=== PATIENT | female | born 1965 | race Caucasian/White ===

== ENCOUNTER 2017-05-07 11:35 | Emergency (ER) | payer OTHER ==
[2017-05-07 11:42] VITALS: BP 139/87; PULSE 85; TEMP 98.1; BMI 21.1
--- NOTE | 2017-05-07 12:17 | PDOC ---
History of Present Illness - General Chief Complaint: Pain Stated Complaint: RT BIG TOE PAIN Time Seen by Provider: 05/07/17 12:01 - History of Present Illness Initial Comments: 05/07/17 12:43 Complaint: Pain left great toe History of present illness: Intermittent pain at the tip of the left great toe, lateral aspect, in the area where there is pressure from her shoe. 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 The pain clears up completely and then recurs. No other acute injuries. No pain at the IP or MCP J. Physical exam: Normal except for mild tenderness of the tip of the left great toe, medial aspect, no erythema, induration, skin lesions or skin disruption. Sign of paronychia. No deformity. Impression: Repetitive inflammation due to rubbing on the foot where. Plan: Symptomatic treatment, orthotics, padding, and follow-up as necessary with orthopedist or gas cutter. Past History - Past Medical History Allergies/Adverse Reactions: Allergies Allergy/AdvReac Type Severity Reaction Status Date / Time No Known Allergies Allergy Verified 05/07/17 11:39 Home Medications: Ambulatory Orders Sumatriptan Succinate [Imitrex] 50 mg PO ASDIR PRN 08/01/16 Psychiatric Problems: Yes (ANXIETY) Suicide Attempt (Hx): No Other medical history: MIGRAINE HEADACHES - Immunization History Immunization Up to Date: Yes - Psycho/Social/Smoking Cessation Hx Anxiety: No Suicidal Ideation: No Smoking Status: No Smoking History: Never smoked Number of Cigarettes Smoked Daily: 0 Information on smoking cessation initiated: No Hx Alcohol Use: No Drug/Substance Use Hx: No Substance Use Type: None *Physical Exam - Vital Signs Last Vital Signs Temp Pulse Resp BP Pulse Ox 98.1 F 85 18 139/87 100 05/07/17 11:35 05/07/17 11:35 05/07/17 11:35 05/07/17 11:35 05/07/17 11:35 *DC/Admit/Observation/Transfer Diagnosis at time of Disposition: Injury of great toe Qualifiers: Encounter type: initial encounter Laterality: left Qualified Code(s): S99.922A - Unspecified injury of left foot, initial encounter - Discharge Dispostion Disposition: HOME Condition at time of disposition: Stable Admit: No - Referrals Referrals: Robby Manley MD [Staff Physician] - - Patient Instructions Additional Instructions: Use orthotics, proper footwear, and padding as discussed. See orthopedist if no improvement. Ice and Advil drink labs. Supplement with warm soaks/Epsom salts.
== END 2017-05-07 12:25 | disposition home or self-care (01) ==
LOC: FER 11:35
DX: S99.922A Unspecified injury of left foot, initial encounter (principal); X58.XXXA Exposure to other specified factors, initial encounter; Y93.89 Activity, other specified; Y92.9 Unspecified place or not applicable; F41.9 Anxiety disorder, unspecified
CPT/HCPCS: 99282-25

== ENCOUNTER 2017-12-05 09:45 | Emergency (ER) | payer OTHER ==
[2017-12-05 09:53] VITALS: BP 148/98; TEMP 98.1; BMI 21.7
[2017-12-05] MEDS ORDERED: ONDANSETRON *ODT* 4 MG TABLET SL ONE (09:53)
[2017-12-05] MEDS ORDERED: ONDANSETRON *ODT* 4 MG TABLET ONE (09:57)
--- NOTE | 2017-12-05 09:57 | PDOC ---
Attending Attestation - Resident Resident Name: Marco ADemariokendrick - ED Attending Attestation I have performed the following: I have examined & evaluated the patient, The case was reviewed & discussed with the resident, I agree w/resident's findings & plan, Exceptions are as noted - HPI HPI: 12/05/17 09:56 52y F hx of GERD, presenting with 3 days of fevers, R sided ear pain, nonproductive cough, and myalgias. No associated hemoptysis, chest pain, sob, pickering, leg swelling. NO known sick contacts. 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 lives with her parents. exam unreamrakble no acute distress card exam: rrr, no m/r/g pulm: cta posterior pharynx:mildly erythemadous w/o exudates abd: soft nontender, no rebound/guarding suspect flu will treat with tamiflu due to her living with her 80yr old parents return precautions were discussed pmd fu - Physicial Exam PE: 12/05/17 10:13 see above - Medical Decision Making 12/05/17 10:13 see above
--- NOTE | 2017-12-05 10:09 | PDOC ---
History of Present Illness - General Chief Complaint: Respiratory Stated Complaint: COUGH, SORE THROAT, RT EARACHE, STUFFY NOSE Time Seen by Provider: 12/05/17 09:50 - History of Present Illness Initial Comments: 52 year old female presenting with 12/05/17 10:01 Past History - Past Medical History Allergies/Adverse Reactions: Allergies Allergy/AdvReac Type Severity Reaction Status Date / Time No Known Allergies Allergy Verified 12/05/17 09:47 Home Medications: Ambulatory Orders Ibuprofen [Advil -] 200 mg PO ASDIR PRN 12/05/17 Ondansetron [Zofran Odt -] 4 mg GT BID PRN 5 Days #10 tab.rapdis 12/05/17 Oseltamivir Phosphate 75 mg PO BID 5 Days #10 capsule 12/05/17 Ranitidine HCl [Zantac] 150 mg PO ASDIR 12/05/17 COPD: No Psychiatric Problems: Yes (ANXIETY) - Immunization History Immunization Up to Date: Yes - Suicide/Smoking/Psychosocial Hx Smoking Status: No Smoking History: Never smoked Have you smoked in the past 12 months: No Number of Cigarettes Smoked Daily: 0 Information on smoking cessation initiated: No Hx Alcohol Use: No Drug/Substance Use Hx: No Substance Use Type: None *Physical Exam - Vital Signs Last Vital Signs Temp Pulse Resp BP Pulse Ox 98.1 F 102 H 20 148/98 100 12/05/17 09:45 12/05/17 09:45 12/05/17 09:45 12/05/17 09:45 12/05/17 09:45 *DC/Admit/Observation/Transfer Diagnosis at time of Disposition: Influenza - Discharge Dispostion Disposition: HOME Condition at time of disposition: Improved Admit: No - Referrals Referrals: [facility] [Provider Group] - Patient Instructions Printed Discharge Instructions: DI for Influenza -- Adult Additional Instructions: You likely have the flu or another viral syndrome. Please take the oseltamivir ( tamiflu) 2 times per day for 5 days. Please use Tylenol or ibuprofen for the fever and pain. Please return to the ED if your fever, muscle pains, or other symptoms get worse in the next few days or if they aren't better. You can use the Zofran up to twice a day for your nausea and or vomiting. Please follow up with your primary care physician if you have any other questions or you can use our walk in clinic on this sheet if you do not have a PCP. - Post Discharge Activity
[2017-12-05 10:28] VITALS: PULSE 99
== END 2017-12-05 10:30 | disposition home or self-care (01) ==
LOC: FER 09:45
DX: J11.1 Influenza due to unidentified influenza virus with other respiratory manifestations (principal); F41.9 Anxiety disorder, unspecified
CPT/HCPCS: 87804; 99283-25

== ENCOUNTER 2017-12-09 09:43 | Emergency (ER) | payer OTHER ==
[2017-12-09 09:50] VITALS: BP 146/93; PULSE 87; TEMP 98.4; BMI 21.7
--- NOTE | 2017-12-09 10:11 | PDOC ---
History of Present Illness - General Chief Complaint: Ear Problem Stated Complaint: rt ear pain Time Seen by Provider: 12/09/17 09:49 - History of Present Illness Initial Comments: 12/09/17 10:35 Chief complaint: Earache History of present illness: Treated for influenza, finished Tamiflu, although flu swab was negative. 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 Conjunctivae, throat is clear. Neck supple without bruit mass or nodes Chest clear CV regular without murmur rub or gallop Abdomen benign Skin clear, no rash, adequate turgor and wet mucous membranes Impression: Residual URI symptoms, eustachian tube dysfunction Plan: Antihistamine/decongestant, rest and fluids, follow-up as necessary. Fully ambulatory and in no distress at discharge with mother to follow-up as directed Past History - Past Medical History Allergies/Adverse Reactions: Allergies Allergy/AdvReac Type Severity Reaction Status Date / Time No Known Allergies Allergy Verified 12/09/17 09:43 Home Medications: Ambulatory Orders Fexofenadine/Pseudoephedrine [Aleah-D 12 Hour Tablet] 1 tab PO Q12H PRN #20 tab.er.12h 12/09/17 COPD: No Psychiatric Problems: Yes (ANXIETY) - Immunization History Immunization Up to Date: Yes - Suicide/Smoking/Psychosocial Hx Smoking Status: No Smoking History: Never smoked Have you smoked in the past 12 months: No Number of Cigarettes Smoked Daily: 0 Information on smoking cessation initiated: No Hx Alcohol Use: No Drug/Substance Use Hx: No Substance Use Type: None *Physical Exam - Vital Signs Last Vital Signs Temp Pulse Resp BP Pulse Ox 98.4 F 87 18 146/93 99 12/09/17 09:43 12/09/17 09:43 12/09/17 09:43 12/09/17 09:43 12/09/17 09:43 *DC/Admit/Observation/Transfer Diagnosis at time of Disposition: Viral upper respiratory infection - Discharge Dispostion Disposition: HOME Condition at time of disposition: Stable Admit: No - Prescriptions Prescriptions: Fexofenadine/Pseudoephedrine [Aleah-D 12 Hour Tablet] 1 tab PO Q12H PRN #20 tab.er.12h PRN Reason: congestion - Referrals - Patient Instructions Printed Discharge Instructions: DI for Viral Upper Respiratory Infection -- Adult Additional Instructions: Take Advil or Aleve for muscle/joint aches and body aches. - Post Discharge Activity
== END 2017-12-09 10:49 | disposition home or self-care (01) ==
LOC: FER 09:43
DX: J06.9 Acute upper respiratory infection, unspecified (principal); F41.9 Anxiety disorder, unspecified
CPT/HCPCS: 99281-25

== ENCOUNTER 2017-12-14 10:42 | Emergency (ER) | payer OTHER ==
--- NOTE | 2017-12-14 11:08 | PDOC ---
History of Present Illness - General Chief Complaint: Pain Stated Complaint: rt hand pain Time Seen by Provider: 12/14/17 10:43 - History of Present Illness Initial Comments: 12/14/17 11:03 Chief complaint: Right hand pain History of present illness: This is a 52-year-old woman with no significant past medical history who presents to the emergency department with several day history of intermittent right hand discomfort. Patient states she was diagnosed with the flu last week over the course of this week she has realized that when she wakes up from sleep her hands are flexed inward and over the course of the day with repetitive typing and turning of her right hand she experiences pain over the dorsal aspect of her hand in the middle. No history of direct trauma. No current fever chills weakness no rashes mumps bruises. Symptoms are intermittent exacerbated by repetitive movement mild in severity alleviated by rest no associated fever or chills redness rashes Past History - Past Medical History Allergies/Adverse Reactions: Allergies Allergy/AdvReac Type Severity Reaction Status Date / Time No Known Allergies Allergy Verified 12/14/17 10:43 Home Medications: Ambulatory Orders NK [No Known Home Medication] 12/14/17 COPD: No Psychiatric Problems: Yes (ANXIETY) - Immunization History Immunization Up to Date: Yes - Suicide/Smoking/Psychosocial Hx Smoking Status: No Smoking History: Never smoked Have you smoked in the past 12 months: No Number of Cigarettes Smoked Daily: 0 Hx Alcohol Use: No Drug/Substance Use Hx: No Substance Use Type: None Review of Systems - Review of Systems Comments:: 12/14/17 11:05 ROS: A complete review of 10 out of 10 review of systems is taken and is negative apart from what is previously mentioned below and in the HPI. *Physical Exam - Physical Exam Comments: 12/14/17 11:05 Vitals: Triage Vital signs reviewed General Appearance: no acute distress, well nourished well developed, Head: Atraumatic, Extremities: Full range of motion to all extremities, no cyanosis, clubbing, or edema no tenderness to palpation neurovascularly intact distally good strength good sensation and good radial pulses Skin: Warm and dry, no rashes or lesions, no rash, no petechiae Neuro: AOX3; Cranial Nerves 2-12 grossly intact, Strength intact to all extremities, Sensation intact to all extremities,gait normal Psych: normal mood, normal affect Medical Decision Making - Medical Decision Making 12/14/17 11:06 Well-appearing no apparent distress history and examination most consistent with tendinitis no bony discomfort to palpation We'll recommend conservative management for the next few days rest ice NSAIDs wrist splint at night. If no improvement by Monday patient will follow-up with Dr. Doroteo gonzalez Findings, the need for follow-up, strict return instructions discussed with patient. *DC/Admit/Observation/Transfer Diagnosis at time of Disposition: Hand tendonitis - Discharge Dispostion Disposition: HOME Admit: No - Referrals Referrals: Jayce Sadler MD [Staff Physician] - - Patient Instructions Printed Discharge Instructions: DI for Hand Pain Additional Instructions: Take immm-sle-zryaicm Aleve 2 tabs twice a day morning and night for the next 3 days. Ice affected hand 20 minutes on 20 minutes off. Wear a wrist splint which can be purchased at a pharmacy while he sleep at night. If no improvement in symptoms by Monday follow-up with Dr. Sadler hand. Return to the emergency department for severe worsening symptoms or for any concerns. - Post Discharge Activity
[2017-12-14 11:11] VITALS: BP 129/69; PULSE 84; TEMP 97.9; BMI 21.7
== END 2017-12-14 11:19 | disposition home or self-care (01) ==
LOC: FER 10:42
PROC: 2W3CX1Z Immobilization of Right Lower Arm using Splint (ICD-10-PCS; principal; 2017-12-14)
DX: M77.9 Enthesopathy, unspecified (principal); F41.9 Anxiety disorder, unspecified
CPT/HCPCS: 99281-25

== ENCOUNTER 2018-09-19 09:54 | Emergency (ER) | payer OTHER ==
--- NOTE | 2018-09-19 10:00 | PDOC ---
History of Present Illness - General Chief Complaint: Pain Stated Complaint: left flank/mid back pain Time Seen by Provider: 09/19/18 09:59 History Source: Patient Exam Limitations: No Limitations Past History - Past Medical History Allergies/Adverse Reactions: Allergies Allergy/AdvReac Type Severity Reaction Status Date / Time No Known Allergies Allergy Verified 09/19/18 09:55 Home Medications: Ambulatory Orders Cyclobenzaprine HCl [Flexeril -] 10 mg PO HS PRN #14 tablet 09/19/18 Diclofenac Sodium [Diclofenac Sodium ER] 100 mg PO DAILY PRN #30 tab.er.24h Famotidine [Pepcid] 20 mg PO DAILY PRN #30 tablet 09/19/18 COPD: No Psychiatric Problems: Yes (ANXIETY) - Immunization History Immunization Up to Date: Yes - Suicide/Smoking/Psychosocial Hx Smoking Status: No Smoking History: Never smoked Have you smoked in the past 12 months: No Number of Cigarettes Smoked Daily: 0 Hx Alcohol Use: No Drug/Substance Use Hx: No Substance Use Type: None Medical Decision Making - Medical Decision Making Pt was seen at bedside, also will be seen by attending Dr. Rodriguez. Pt presenting with L-sided flank pain x1 week. Pt states about 1 week ago, she was shoveling snow during the snow storm. PE showed [] Considering [vs vs] Ordered work-up including UA and urine culture. Provided 60 mg IM toradol and 500 mg robaxin for improvement of likely muscle spasm and pain control. Will continue to reassess pt and monitor for symptomatic improvement. 09/19/18 10:20 09/19/18 18:56 Sent 10 Flexeril, 60 diclofenac, and 20 mg pepcid to pt pharmacy. UA showed trace blood (pt has had in the past), no infection. Considering normal lab results, pt can be discharged to home with follow-up. Pt advised to follow-up with PCP in 1-2 days. Strict return precautions provided with pt understanding. 09/19/18 18:59 *DC/Admit/Observation/Transfer Diagnosis at time of Disposition: Flank pain Back strain Qualifiers: Encounter type: initial encounter Qualified Code(s): S39.012A - Strain of muscle, fascia and tendon of lower back, initial encounter - Discharge Dispostion Disposition: HOME Condition at time of disposition: Good Decision to Admit order: No - Prescriptions Prescriptions: Cyclobenzaprine HCl [Flexeril -] 10 mg PO HS PRN #14 tablet PRN Reason: Back Pain Diclofenac Sodium [Diclofenac Sodium ER] 100 mg PO DAILY PRN #30 tab.er.24h PRN Reason: Back Pain Famotidine [Pepcid] 20 mg PO DAILY PRN #30 tablet PRN Reason: Indigestion - Referrals - Patient Instructions Printed Discharge Instructions: DI for Low Back Pain Additional Instructions: You were seen in the ER today for flank pain. The results of your labs today showed no urinary tract infection. Please follow-up with your primary care doctor within 1-2 days to discuss your visit and make sure your symptoms have improved. I have sent 20 mg Pepcid (once per day, as needed for indigestion), 10 mg Flexeril (once per day at night, for back spasm), and 100 mg extended release diclofenac (once per day, as needed), to your pharmacy. Please take the Flexeril at night, as it can cause drowsiness, and do not operate heavy machinery while taking it. Please return to the ER if you have any worsening pain, development of fevers or chills, loss of consciousness, inability to tolerate food or fluids, or any other concerns. - Post Discharge Activity
[2018-09-19 10:13] VITALS: BP 141/93; PULSE 82; TEMP 97.7; BMI 21.3
[2018-09-19] MEDS ORDERED: KETOROLAC TROMETHAMINE 60 MG/2 ML VIAL IM ONE (10:19)
[2018-09-19] MEDS ORDERED: METHOCARBAMOL 500 MG TABLET PO ONE (10:19)
--- NOTE | 2018-09-19 10:21 | PDOC ---
Attending Attestation - Resident Resident Name: DaxAyana - ED Attending Attestation I have performed the following: I have examined & evaluated the patient, The case was reviewed & discussed with the resident, I agree w/resident's findings & plan, Exceptions are as noted - HPI HPI: 09/19/18 10:44 Left back pain after snow shoveling several days ago. Worse with movement. No radicular symptoms. No rash - Physicial Exam PE: 09/19/18 10:45 Physical exam is normal. Patient sitting comfortably in no acute distress. No CVAT. No abdominal tenderness. No tenderness or deformity of the lumbosacral spine. Neurologically intact. Gait stable and unimpaired. - Medical Decision Making 09/19/18 10:46 Assessment: Musculoskeletal pain Plan: Urinalysis and symptomatic treatment. Further evaluation depending on results. 09/19/18 11:17 Urinalysis clear, except for trace blood, which the patient has always had in the past Symptoms are most consistent with musculoskeletal pain. Symptomatic treatment and follow-up as necessary. Fully ambulatory in no significant pain or other distress upon discharge.
[2018-09-19] MEDS ORDERED: METHOCARBAMOL 500 MG TABLET ONE (10:29)
[2018-09-19] MEDS ORDERED: KETOROLAC TROMETHAMINE 60 MG/2 ML VIAL ONE (10:29)
[2018-09-19 10:33] LABS: PH,URINE 5.5 (4.5-8); URINE APPEARANCE Clear; URINE BILIRUBIN Negative (NEGATIVE); URINE COLOR Amber; URINE GLUCOSE (UA) Negative (NEGATIVE); URINE KETONE Trace (NEGATIVE); URINE LEUK ESTERASE Negative (NEGATIVE); URINE NITRITE Negative (NEGATIVE); URINE PROTEIN 1+ (NEGATIVE); URINE UROBILINOGEN 0.2 (0.2-1.0)
[2018-09-19 10:53] LABS: EPI CELLS 2+ /HPF; URINE RBC 0-2 /hpf (0-3); URINE WBC 0-2 (0-5)
== END 2018-09-19 11:22 | disposition home or self-care (01) ==
LOC: FER 09:54
DX: R10.31 Right lower quadrant pain (principal); S39.012A Strain of muscle, fascia and tendon of lower back, initial encounter; X58.XXXA Exposure to other specified factors, initial encounter; Y93.89 Activity, other specified; Y92.9 Unspecified place or not applicable; F41.9 Anxiety disorder, unspecified
CPT/HCPCS: 81003; 81015; 87086; 99282-25

== ENCOUNTER 2018-09-25 11:59 | Emergency (ER) | payer OTHER ==
[2018-09-25 12:06] VITALS: BP 144/87; PULSE 93; TEMP 98.2; BMI 21.3
--- NOTE | 2018-09-25 12:27 | PDOC ---
History of Present Illness - General Chief Complaint: Pain, Acute Stated Complaint: LEFT SIDED BACK PAIN Time Seen by Provider: 09/25/18 12:07 History Source: Patient Exam Limitations: No Limitations - History of Present Illness Initial Comments: 09/25/18 12:33 53y F hx of migraines, hx of herniated disc (confirmed by MRI a few years ago) for the past week or so. Pt noted increasing L sided lower back pain since shoveling from the last snow storm. pain is 8/10. The patient notes the pain is in the L flank and radiates to the front. The pain is constant but occasionally worsens. IT does seem to get better when she uses a heating pad at night, but will come back after a few hrs. Pt came to [facility] about a week ago and then went to urgent care and has been give some meds which she has been taking intermittently. Pt denies any fever/chills, n/v, f/c, dysuria, hematuria, diarrhea, cp, sob, palpitations, numbness/tingling/weakness. Pain does not seem to wrosen with movement or certain postiions. Past History - Past Medical History Allergies/Adverse Reactions: Allergies Allergy/AdvReac Type Severity Reaction Status Date / Time No Known Allergies Allergy Verified 09/25/18 12:00 Home Medications: Ambulatory Orders Nabumetone 750 mg PO BID PRN 09/25/18 Sumatriptan Succinate [Imitrex] 25 mg PO ASDIR PRN 09/25/18 Tizanidine HCl 4 mg PO TID PRN 09/25/18 COPD: No Psychiatric Problems: Yes (ANXIETY) Other medical history: MIGRAIN HEADACHES - Immunization History Immunization Up to Date: Yes - Suicide/Smoking/Psychosocial Hx Smoking Status: No Smoking History: Never smoked Have you smoked in the past 12 months: No Number of Cigarettes Smoked Daily: 0 Information on smoking cessation initiated: No Hx Alcohol Use: No Drug/Substance Use Hx: No Substance Use Type: None Review of Systems - Review of Systems Able to Perform ROS?: Yes Comments:: 09/25/18 13:11 Constitutional - no reported Fever, Chills, HEENT: no reported vision changes, sore throat Respiratory: no reported cough, sob, hemoptysis Cardiac: no reported chest pain, palpitations, light headedness, leg swelling Abd/GI: no reported abd pain, nausea, vomiting, blood per rectum, melena, diarrhea : no reported dysuria, frequency, discharge Musculskelatal - +back pain no reported joint swelling skin - no reported bruising, erythema, rash neurological: no reported headache, numbness, focal weakness, tingling, ataxia, hematologic: no reported easy bruising, easy bleeding *Physical Exam - Vital Signs Last Vital Signs Temp Pulse Resp BP Pulse Ox 98.2 F 93 H 18 144/87 98 09/25/18 12:00 09/25/18 12:00 09/25/18 12:00 09/25/18 12:00 09/25/18 12:00 - Physical Exam Comments: 09/25/18 13:11 GENERAL: The patient is awake, alert, and fully oriented, Nontoxic - in no acute distress. HEAD: Normocephalic, atraumatic. EYES: extraocular movements intact, sclera anicteric, conjunctiva clear. ENT: Normal voice, Moist mucous membranes. NECK: Normal range of motion, supple LUNGS: Breath sounds equal, clear to auscultation bilaterally. No wheezes, no rhonchi, no rales. HEART: Regular rate and rhythm, normal S1 and S2 without murmur, rub or gallop. ABDOMEN: Soft, nontender, normoactive bowel sounds. No guarding, no rebound. . No CVA tenderness EXTREMITIES: Normal range of motion, no edema. No clubbing or cyanosis. No cords, erythema, or tenderness. BACK: no midline or paraspinal tenderness, no flcutuance, erythema, no rashes NEUROLOGICAL: No facial assymetry, Normal speech, PSYCH: Normal mood, normal affect. SKIN: Warm, Dry, normal turgor, Moderate Sedation - Procedure Monitoring Vital Signs: Procedure Monitoring Vital Signs Temperature 98.2 F 09/25/18 12:00 Pulse Rate 93 H 09/25/18 12:00 Respiratory Rate 18 09/25/18 12:00 Blood Pressure 144/87 09/25/18 12:00 O2 Sat by Pulse Oximetry (%) 98 09/25/18 12:00 Medical Decision Making - Medical Decision Making 09/25/18 13:11 ddx for the pts pain includes msk vs kdiney stones pt had prior lab work at urgent care, had a UA here that was trace blood (which she states is chronic for her) pt declines pain meds here will obtain repeat obtain a CT sprial 09/25/18 14:09 CT neg for hydro and stones will dc with pmd fu an dsupportive care for msk strain rturn precautions were dsicussed I discussed the physical exam findings, ancillary test results and final diagnoses with the patient. I answered all of the patient's questions. The patient was satisfied with the care received and felt comfortable with the discharge plan and treatment plan. The patient will call their primary care physician within 24 hours to arrange follow-up and will return to the Emergency Department with any new, persistent or worsening symptoms. *DC/Admit/Observation/Transfer Diagnosis at time of Disposition: Muscle strain - Discharge Dispostion Disposition: HOME Condition at time of disposition: Stable Decision to Admit order: No - Referrals Referrals: Marcy Kincaid MD [Primary Care Provider] - - Patient Instructions Printed Discharge Instructions: DI for Back Strain or Sprain Additional Instructions: Return to the emergency department immediately with ANY new, persistent or worsening symptoms including numbness, tingling, weakness, fevers or any other concerns. Take ibuprofen (400mg)/tylenol(650mg) every 6 hours for 2 days. Apply heat to your sore muscles. You MUST call and follow up with your doctor in 4-5 days for further evaluation of your symptoms. Your emergency department visit is not complete without a followup with your doctor for reevaluation.. Results were discussed with you. Please make sure your doctor reviews the results of your emergency evaluation. Print Language: TURKMEN - Post Discharge Activity
== END 2018-09-25 14:15 | disposition home or self-care (01) ==
LOC: FER 11:59
DX: S39.012A Strain of muscle, fascia and tendon of lower back, initial encounter (principal); X58.XXXA Exposure to other specified factors, initial encounter; Y93.89 Activity, other specified; Y92.9 Unspecified place or not applicable
CPT/HCPCS: 74176; 99283-25

== ENCOUNTER 2019-03-16 09:45 | Emergency (ER) | payer OTHER ==
--- NOTE | 2019-03-16 10:10 | PDOC ---
Attending Attestation - Resident Resident Name: McnealJewel - ED Attending Attestation I have performed the following: I have examined & evaluated the patient, The case was reviewed & discussed with the resident, I agree w/resident's findings & plan, Exceptions are as noted - HPI HPI: 53 yo F presents with R low back pain that radiates to R upper inner thigh. She has had similar yang in the past, generally made worse with bending, twisting, and lifting. She has an arthritic dog which she frequently has to carry. 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 No direct trauma. - Physicial Exam PE: GENERAL: Awake, alert, and fully oriented, in no acute distress HEAD: No signs of trauma EYES: PERRLA, EOMI, sclera anicteric, conjunctiva clear ENT: Auricles normal inspection, hearing grossly normal, nares patent, oropharynx clear without exudates. Moist mucosa NECK: Normal ROM, supple, no lymphadenopathy, JVD, or masses LUNGS: Breath sounds equal, clear to auscultation bilaterally. No wheezes, and no crackles HEART: Regular rate and rhythm, normal S1 and S2, no murmurs, rubs or gallops ABDOMEN: Soft, nontender, normoactive bowel sounds. No guarding, no rebound. No masses MSK: R low back with soft tissue tenderness to R lumbar paraspinal region. No midline tenderness, no stepoffs. Extremities with normal range of motion, no edema. No clubbing or cyanosis. No cords, erythema, or tenderness NEUROLOGICAL: Cranial nerves II through XII grossly intact. Normal speech, normal gait. Motor and sensation intact SKIN: Warm, Dry, normal turgor, no rashes or lesions noted. - Medical Decision Making Suspect MSK pain. No red flag symptoms. Stable for DC home.
[2019-03-16 10:13] VITALS: BP 140/80; PULSE 86; TEMP 98.4; BMI 21.1
[2019-03-16] MEDS ORDERED: LIDOCAINE 5% TOPICAL PATCH TP ONE (10:17)
[2019-03-16] MEDS ORDERED: LIDOCAINE 5% TOPICAL PATCH ONE (10:18)
--- NOTE | 2019-03-16 10:32 | PDOC ---
History of Present Illness - General Chief Complaint: Back Pain Stated Complaint: RIGHT LOWER BACK PAIN Time Seen by Provider: 03/16/19 09:55 History Source: Patient, Old Records Exam Limitations: No Limitations - History of Present Illness Initial Comments: HPI: 53 y/o female presenting to ER complaining of right lower back pain with a burning sensation over the right thigh. States pain has been a chronic problem over the past several months and became worse over the past several days. Made worse by bending and twisting at waist. 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 Was referred to physical therapy and pain management clinic by PCP but pt has declined to f/ u. PCP: Dr. 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 Medical Hx: - Migraines - Chronic lower back pain Review of Systems: In addition to that documented in the HPI above, the additional ROS was obtained : Constitutional: Denies fevers or chills Head: Denies vision changes ENMT: Denies sore throat CV: Denies chest pain Resp: Denies SOB GI: Denies vomiting or diarrhea : Denies painful urination MSK: Per HPI Skin: Denies new rashes Neuro: Denies new numbness or tingling or weakness, saddle anesthesia, difficulty voiding, or bowel incontinence Endocrine: Denies polyuria Heme: Denies bleeding or bruising Physical Examination: Constitutional: Well-developed, well-nourished female in no acute distress or obvious discomfort. Found standing upright next to hospital bed. Alert and oriented x4. Answered all questions appropriately and completely. Speech was non -labored, non-pressured. Head: Normocephalic. No obvious external signs of trauma. Cardiovascular / Chest: Regular rate and regular rhythm. No murmur, rubs, clicks , or gallops. Peripheral pulses: radial pulses full. Respiratory: Breathing unlabored. Equal chest rise and fall. Clear to auscultation bilaterally. No stridor, no wheezing, no rhonchi. Gastrointestinal: abdomen is soft, non-tender, non-distended. No overlying skin lesions or obvious signs of trauma. Neuro: Alert and oriented. Moving all four extremities spontaneously. Sensation to all four extremities intact. Lower extremity: proximal and distal strength 5/ 5. Plantar flexion and dorsiflexion 5/5. Negative straight leg test on R. Skin: Warm, dry, and intact. Psych: Affect: anxious. Mood: normal. MDM: *Reviewed vital signs, nursing notes, and prior visit documentation (if available). 53 y/o female presenting with R lower back pain made worse when bending at waist. Long history of similar pain. Has been seen as this department several times a year for similar complaints. No red flags identified. Afebrile. Vitals unremarkable for hypotension or tachycardia. Physical exam as described above. Suspect likely MSK pain with lateral femoral cutaneous radiculopathy. Low suspicion for Cauda Equina or abscess. Ordered lidoderm patch for pain relief. Pt declined Tylenol stating she had taking Advil a few hours earlier and her stomach was sensitive to medication. Sent prescription for Lidoderm patch to pharmacy. Discussed physical exam findings with pt. Answered all questions. Provided return precautions. Pt expressed verbal understanding and agreement with plan to discharge home with outpatient follow up. Jewel Mcneal M.D., PGY1 Emergency Medicine Resident Past History - Past Medical History Allergies/Adverse Reactions: Allergies Allergy/AdvReac Type Severity Reaction Status Date / Time No Known Allergies Allergy Verified 03/16/19 09:52 Home Medications: Ambulatory Orders Ibuprofen [Advil -] 400 mg PO TID PRN 03/16/19 Lidocaine 5% Patch [Lidoderm Patch -] 1 patch TP DAILY #30 patch 03/16/19 COPD: No Psychiatric Problems: Yes (ANXIETY) - Immunization History Immunization Up to Date: Yes - Suicide/Smoking/Psychosocial Hx Smoking Status: No Smoking History: Never smoked Have you smoked in the past 12 months: No Number of Cigarettes Smoked Daily: 0 Hx Alcohol Use: No Drug/Substance Use Hx: No Substance Use Type: None *Physical Exam - Vital Signs Last Vital Signs Temp Pulse Resp BP Pulse Ox 98.4 F 86 16 140/80 100 03/16/19 09:46 03/16/19 09:46 03/16/19 09:46 03/16/19 09:46 03/16/19 09:46 ED Treatment Course - Medications Given in the ED: ED Medications Discontinued Medications Generic Name Dose Route Start Last Admin Trade Name Freq PRN Reason Stop Dose Admin Lidocaine 1 patch 03/16/19 10:17 03/16/19 10:22 Lidoderm Patch - TP 03/16/19 10:18 1 patch ONCE ONE Administration *DC/Admit/Observation/Transfer Diagnosis at time of Disposition: Low back pain radiating to right leg - Discharge Dispostion Disposition: HOME Condition at time of disposition: Good Decision to Admit order: No - Prescriptions Prescriptions: Lidocaine 5% Patch [Lidoderm Patch -] 1 patch TP DAILY #30 patch - Referrals Referrals: Marcy Kincaid MD [Primary Care Provider] - - Patient Instructions Printed Discharge Instructions: DI for Low Back Pain Additional Instructions: You were seen today for right lower back pain, which has been bothering you for the past several months. It is likely a muscle strain and is being made worse by bending over and picking up your dog. Try and refrain from being over at the waist. Rest your back. You can take over the counter Tylenol or Advil as needed for pain. Take as directed on the package insert. Do not exceed the recommended dosage. I have a prescription for lidoderm patches to your pharmacy. Take as directed on the package insert. There is a chance the medication will not be covered by your insurance. If it is not covered, talk to the pharmacist above over the counter alternatives. Follow up with your primary care doctor within the next 3-4 days. You will need to call to make an appointment. The number is included in this packet. Print Language: CHADIAN - Post Discharge Activity
[2019-03-16] MEDS ORDERED: LIDOCAINE PATCH REMOVAL MC SCH (22:00)
== END 2019-03-16 10:34 | disposition home or self-care (01) ==
LOC: FER 09:45
DX: M54.5 Low back pain (principal); M79.604 Pain in right leg; F41.9 Anxiety disorder, unspecified
CPT/HCPCS: 99282-25

== ENCOUNTER 2019-10-17 12:59 | Emergency (ER) | payer OTHER ==
--- NOTE | 2019-10-17 13:19 | PDOC ---
History of Present Illness - General Chief Complaint: Pain Stated Complaint: rt upper chest pain History Source: Patient - History of Present Illness Initial Comments: 10/17/19 14:37 Ms. Medina is a 54 y/o woman with hx low back pain p/w one week of intermittent chest pain. She reports that her pain began approx one week ago, and worsens with movement of her neck. She reports that the pain begins at the R upper chest wall and moves up from her shoulder to her R arm. She denies any dyspnea on exertion, any shortness of breath, any fevers, chills, or weakness. 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 Past History - Past Medical History Allergies/Adverse Reactions: Allergies Allergy/AdvReac Type Severity Reaction Status Date / Time No Known Allergies Allergy Verified 03/16/19 09:52 Home Medications: Ambulatory Orders Ibuprofen [Advil -] 400 mg PO TID PRN 03/16/19 COPD: No Psychiatric Problems: Yes (ANXIETY) - Immunization History Immunization Up to Date: Yes - Psycho Social/Smoking Cessation Hx Smoking Status: No Smoking History: Never smoked Have you smoked in the past 12 months: No Number of Cigarettes Smoked Daily: 0 Hx Alcohol Use: No Drug/Substance Use Hx: No Substance Use Type: None Review of Systems - Review of Systems Able to Perform ROS?: Yes Comments:: 10/17/19 14:17 ROS: GENERAL/CONSTITUTIONAL: No fever or chills. No weakness. HEAD, EYES, EARS, NOSE AND THROAT: No change in vision. No ear pain or discharge. No sore throat. CARDIOVASCULAR: Chest pain. No shortness of breath RESPIRATORY: No cough, wheezing, or hemoptysis. GASTROINTESTINAL: No nausea, vomiting, diarrhea or constipation. GENITOURINARY: No dysuria, frequency, or change in urination. MUSCULOSKELETAL: No joint or muscle swelling or pain. No neck or back pain. SKIN: No rash NEUROLOGIC: No headache, vertigo, loss of consciousness, or change in strength/ sensation. ENDOCRINE: No increased thirst. No abnormal weight change HEMATOLOGIC/LYMPHATIC: No anemia, easy bleeding, or history of blood clots. ALLERGIC/IMMUNOLOGIC: No hives or skin allergy. *Physical Exam - Physical Exam 10/17/19 14:18 PE: GENERAL: Awake, alert, and fully oriented, in no acute distress HEAD: No signs of trauma, normocephalic, atraumatic EYES: PERRLA, EOMI, sclera anicteric, conjunctiva clear ENT: Auricles normal inspection, hearing grossly normal, nares patent, oropharynx clear without exudates. Moist mucosa NECK: Normal ROM, supple, no lymphadenopathy, JVD, or masses LUNGS: No distress, speaks full sentences, clear to auscultation bilaterally HEART: Regular rate and rhythm, normal S1 and S2, no murmurs, rubs or gallops, peripheral pulses normal and equal bilaterally. ABDOMEN: Soft, nontender, normoactive bowel sounds. No guarding, no rebound. No masses EXTREMITIES : Normal inspection, Normal range of motion, no edema. No clubbing or cyanosis NEUROLOGICAL: Cranial nerves II through XII grossly intact. Normal speech, normal gait, no focal sensorimotor deficits SKIN: Warm, Dry, normal turgor, no rashes or lesions noted Medical Decision Making - Medical Decision Making 10/17/19 14:15 54F w/no PMH p/w one week of intermittent chest pain that began after exercise, worse with specific neck movement, most consistent with MSK pain but cannot rule out ACS. Plan: CBC CMP Troponin EKG CXR Dispo: Pending --- Ms. Medina is refusing blood work as she has to leave soon. Discussed risk of missing evidence of cardiac damage/heart attack. She understands risk and will defer blood tests. Plan for EKG. --- On review, no evidence of acute ischemia on EKG. Plan for discharge with return precautions, close PCP follow up. Discharge - Discharge Information Problems reviewed: Yes Clinical Impression/Diagnosis: Chest pain Qualifiers: Chest pain type: unspecified Qualified Code(s): R07.9 - Chest pain, unspecified Condition: Stable Disposition: HOME - Admission No - Follow up/Referral - Patient Discharge Instructions Patient Printed Discharge Instructions: DI for Chest Pain Additional Instructions: You were seen in the ER for chest pain. Your EKG was normal. Please return to the ER if you develop any shortness of breath, the pain changes, you feel weak, or would like further bloodwork to evaluate the pain. Please see your primary care provider as soon as possible, in the next 3 days. - Post Discharge Activity
[2019-10-17 13:20] VITALS: BP 125/70; PULSE 76; TEMP 98.4; BMI 21.5
--- NOTE | 2019-10-17 14:17 | PDOC ---
Attending Attestation - Resident Resident Name: Errol Polo - HPI HPI: 10/17/19 14:08 Pt presents to the ED complaining of a one week history of R sided chest pain that radiates down her R arm and into her neck. Pain is worse with movements of her neck and arm. It is non exertional and non accompanied with shortness of breath. - Physicial Exam PE: 10/17/19 14:17 Agree with resident exam. Patient is alert and oriented and no acute distress. + point tenderness over R chest wall. Ambulatory with normal gait. 10/17/19 14:17 - Medical Decision Making 10/17/19 14:18 Pt presents to the ED complaining of a one week history of R sided chest wall pain. No risk factors for cardiac disease. EKG is normal. Plan was to check labs and cardiac enzymes, but patient is refusing labs. Will discharge home with instructions to return to the ED for worsening symptoms.
--- NOTE | 2019-10-18 10:39 | EKG ---
Test Reason : Blood Pressure : / mmHG Vent. Rate : 081 BPM Atrial Rate : 081 BPM P-R Int : 154 ms QRS Dur : 092 ms QT Int : 386 ms P-R-T Axes : 073 002 020 degrees QTc Int : 448 ms NORMAL SINUS RHYTHM POSSIBLE LEFT ATRIAL ENLARGEMENT INCOMPLETE RBBB NO PREVIOUS ECGS AVAILABLE Confirmed by BUCK SMITH MD ([id number]) on 10/18/2019 10:38:53 AM Referred By: CAROLE CRUZ Confirmed By:BUCK SMITH MD
== END 2019-10-17 14:15 | disposition home or self-care (01) ==
LOC: FER 12:59
DX: R07.89 Other chest pain (principal)
CPT/HCPCS: 93005; 99282-25

== ENCOUNTER 2019-10-18 10:10 | Emergency (ER) | payer OTHER ==
--- NOTE | 2019-10-18 10:22 | PDOC ---
History of Present Illness - General Chief Complaint: Pain Stated Complaint: rt upper chest pain Time Seen by Provider: 10/18/19 10:11 History Source: Patient Exam Limitations: No Limitations - History of Present Illness Initial Comments: 10/18/19 10:13 HPI: Ms. Medina is a 53 y/o female presenting to [facility] complaining of right upper chest pain Pt states that she has a long standing history of lower back pain She has been doing physical therapy She notes last week having right upper extremity intermittent pain (which was shooting and sharp, brief episodes) Pt was seen in PT 4 days ago, was doing push up like exercise followed by back extension and neck extension Pt states, that night she noted excruciating right shoulder/upper chest and upper extremity pain Initially when she had these symptoms, pain was relieved with Motrin Since monday, motrin has not improved pain Pt was seen in the ER yesterday but could not stay for lab work Pain is describes as almost constant since Monday (4 days ago) Located in the upper anterior chest, sharp, rated 10/10, radiation to the right arm No arm weakness or numbness No nausea, diaphoresis No exertional symptoms, in fact, pain is exacerbated with rotating neck to the right No fevers or chills No shortness of breath No recent travel, lower extremity edema Actually, now, her lower back feels better PCP: Dr. 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 Medical Hx: - Migraines - Chronic lower back pain Review of Systems: In addition to that documented in the HPI above, the additional ROS was obtained : Constitutional: Denies fevers or chills Head: Denies vision changes ENMT: Denies sore throat CV: Reports chest pain, neck pain, arm pain Resp: Denies SOB GI: Denies vomiting or diarrhea : Denies painful urination MSK: Per HPI Skin: Denies new rashes Neuro: Denies lower back pain Endocrine: Denies polyuria Heme: Denies bleeding or bruising Physical Examination: Constitutional: Well-developed, well-nourished female in no acute distress or obvious discomfort. Found standing upright next to hospital bed. Alert and oriented x4. Answered all questions appropriately and completely. Speech was non -labored, non-pressured. Head: Normocephalic. No obvious external signs of trauma. Cardiovascular / Chest: Regular rate and regular rhythm. No murmur, rubs, clicks , or gallops. Peripheral pulses: radial pulses full. Respiratory: Breathing unlabored. Equal chest rise and fall. Clear to auscultation bilaterally. No stridor, no wheezing, no rhonchi. Gastrointestinal: abdomen is soft, non-tender, non-distended. No overlying skin lesions or obvious signs of trauma. Neuro: Alert and oriented. Moving all four extremities spontaneously. Sensation to all four extremities intact. No midline cervical spine tenderness Pain exacerbated with rotation of neck to the right No pain in the trapezius 5/5 strength in the RUE and LUE Skin: Warm, dry, and intact. Psych: Affect: anxious. Mood: normal. 10/18/19 10:28 Past History - Past Medical History Allergies/Adverse Reactions: Allergies Allergy/AdvReac Type Severity Reaction Status Date / Time No Known Allergies Allergy Verified 10/18/19 10:11 Home Medications: Ambulatory Orders Ibuprofen [Advil -] 400 mg PO TID PRN 03/16/19 Lidocaine 5% Patch [Lidoderm Patch -] 1 patch TP DAILY PRN #30 patch 10/18/19 Methocarbamol [Robaxin -] 500 mg PO TID PRN #30 tablet 10/18/19 Methylprednisolone [Medrol Dose Dmitry] 4 mg PO ASDIR #21 tablet 10/18/19 COPD: No Psychiatric Problems: Yes (ANXIETY) - Immunization History Immunization Up to Date: Yes - Psycho Social/Smoking Cessation Hx Smoking Status: No Smoking History: Never smoked Have you smoked in the past 12 months: No Number of Cigarettes Smoked Daily: 0 Hx Alcohol Use: No Drug/Substance Use Hx: No Substance Use Type: None ED Treatment Course - LABORATORY CBC & Chemistry Diagram: 10/18/19 10:30 10/18/19 10:26 Medical Decision Making - Medical Decision Making 10/18/19 10:37 54 yo F presenting with right upper chest pain that seems related to neck movement and is associated with pain radiating down the right arm s/p PT exercise Will do: Labs r/o Cardiac etiology CT C spine - suspect disc herniation Will not do CXR as pt Os 100%, no tachypnea, bilateral breath sounds Re Assess 10/18/19 11:23 Laboratory Tests 10/18/19 10/18/19 10:26 10:30 WBC 8.1 Hgb 14.9 Hct 44.6 Plt Count 276 BUN 18.[address]: left paracentral disc bulge C3,C4 anterolistehsis Will d/c home Continue po meds Follow up with NSGY and PMD Discharge - Discharge Information Problems reviewed: Yes Clinical Impression/Diagnosis: Radicular pain in right arm, Neck pain, musculoskeletal Condition: Stable Disposition: HOME - Admission No - Additional Discharge Information Prescriptions: Lidocaine 5% Patch [Lidoderm Patch -] 1 patch TP DAILY PRN #30 patch PRN Reason: Pain Methocarbamol [Robaxin -] 500 mg PO TID PRN #30 tablet PRN Reason: Lower Back Pain Methylprednisolone [Medrol Dose Dmitry] 4 mg PO ASDIR #21 tablet Prescription Drug Monitoring Program (I-STOP) results: I-STOP not reviewed - Follow up/Referral Referrals: Christiano Gregory MD [Staff Physician] - - Patient Discharge Instructions Patient Printed Discharge Instructions: DI for Cervical Radiculopathy, DI for Neck Pain Additional Instructions: Ms. Medina Thank you for coming in to the ER today Please take medications as prescribed Please be sure to follow up with Dr Gregory as already planned Please discuss your symptoms with your physical therapist, it may be prudent to modify your therapy sessions Return to the ER for any other concerns or complaints Also, follow up with your primary care physician Please give your PMD copies of your results (please note, Dr Gregory should be able to see you CT scan in the system) - Post Discharge Activity Work/Back to School Note: Back to Work
[2019-10-18 10:32] VITALS: BP 149/104; PULSE 88; TEMP 97.6; BMI 21.5
[2019-10-18 10:42] LABS: BASO % 0.6 % (0-2.0); EOS % 0.4 % (0-4.5); HEMATOCRIT 44.6 % (32.4-45.2); HEMOGLOBIN 14.9 GM/dl (10.7-15.3); LYMPH % 25.6 % (8-40); MCH 29.5 pg (25.7-33.7); MCHC 33.5 g/dl (32.0-36.0); MEAN CELL VOLUME 88.1 fl (80-96); MEAN PLT VOLUME 6.9 fl (7.5-11.1); MONO % 6.3 % (3.8-10.2); NEUT % 67.1 % (42.8-82.8); PLATELET COUNT 276 K/MM3 (134-434); RBC 5.06 M/mm3 (3.60-5.2); RDW 12.7 % (11.6-15.6); WHITE BLOOD COUNT 8.1 K/mm3 (4.0-10.8)
[2019-10-18 11:00] LABS: ALBUMIN 4.6 g/dl (3.4-5.0); BILIRUBIN,TOTAL 0.7 mg/dl (0.2-1); CALCIUM 9.6 mg/dl (8.5-10); CREATININE 0.6 mg/dl (0.55-1.3); POTASSIUM 4.2 mmol/L (3.5-5.1); TOT PROT 7.5 g/dl (6.4-8.2)
[2019-10-18] MEDS ORDERED: LIDOCAINE 5% TOPICAL PATCH TP ONE (11:54)
[2019-10-18] MEDS ORDERED: LIDOCAINE 5% TOPICAL PATCH ONE ×2 (11:54→11:56)
[2019-10-18] MEDS ORDERED: LIDOCAINE PATCH REMOVAL MC SCH (22:00)
== END 2019-10-18 12:19 | disposition home or self-care (01) ==
LOC: FER 10:10
DX: M25.511 Pain in right shoulder (principal); M54.2 Cervicalgia
CPT/HCPCS: 36415; 72125-TC; 80053; 82550; 84484; 85025; 99283-25

== ENCOUNTER 2019-10-20 08:35 | Emergency (ER) | payer OTHER ==
--- NOTE | 2019-10-20 09:00 | PDOC ---
History of Present Illness - General Chief Complaint: Pain Stated Complaint: NECK,BACK,HEAD PAIN Time Seen by Provider: 10/20/19 08:39 History Source: Patient Exam Limitations: No Limitations - History of Present Illness Initial Comments: 10/20/19 08:55 54 y/o female seen here 2 days ago for right sided chest pain and back pain that has been present for 1 week. Patient given Medrol dose pack and Methocarbamol but has not taken it. No weakness or numbness. Gets worth with movement. No fever or chills. Taking Motrin without relief. Had a full cardiac work up and EKG all normal. Also CT of the neck done. Patient is under PT and think she may have aggravated her symptoms. No fall or trauma. 10/20/19 09:10 Past History - Past Medical History Allergies/Adverse Reactions: Allergies Allergy/AdvReac Type Severity Reaction Status Date / Time No Known Allergies Allergy Verified 10/20/19 08:36 Home Medications: Ambulatory Orders Ibuprofen [Advil -] 600 mg PO TID PRN 03/16/19 Lidocaine 5% Patch [Lidoderm Patch -] 1 patch TP DAILY PRN #30 patch 10/18/19 Methocarbamol [Robaxin -] 500 mg PO TID PRN #30 tablet 10/18/19 Methylprednisolone [Medrol Dose Dmitry] 4 mg PO ASDIR #21 tablet 10/18/19 Cyclobenzaprine HCl 5 mg PO DAILY #10 tablet 10/20/19 Rizatriptan Benzoate [Rizatriptan] 10 mg PO PRN 10/20/19 COPD: No Psychiatric Problems: Yes (ANXIETY) - Immunization History Immunization Up to Date: Yes - Psycho Social/Smoking Cessation Hx Smoking Status: No Smoking History: Never smoked Have you smoked in the past 12 months: No Number of Cigarettes Smoked Daily: 0 Hx Alcohol Use: No Drug/Substance Use Hx: No Substance Use Type: None Review of Systems - Review of Systems Able to Perform ROS?: Yes Is the patient limited Moldovan proficient: No Constitutional: No: Chills, Fever Respiratory: No: Shortness of Breath, Stridor Cardiac (ROS): No: Chest Pain ABD/GI: No: Nausea, Vomiting Musculoskeletal: Yes: Back Pain Neurological: No: Numbness, Paresthesia, Tingling All Other Systems: Reviewed and Negative *Physical Exam - Physical Exam General Appearance: Yes: Nourished, Appropriately Dressed. No: Apparent Distress HEENT: positive: EOMI, JEFF, Normal ENT Inspection, Normal Voice, Symmetrical, Pharynx Normal Neck: positive: Trachea midline, Normal Thyroid, Supple (no spinous process tenderness full ROM, mil tenderness to paravertebral muscles on right). negative: Tender, Rigid Respiratory/Chest: positive: Chest Tender (reproducible tenderness to right side of chest on palpation), Lungs Clear, Normal Breath Sounds. negative: Respiratory Distress Cardiovascular: positive: Regular Rhythm, Regular Rate, S1, S2. negative: Edema , JVD, Murmur Vascular Pulses: Femoral (R): 4+, Femoral (L): 4+, Carotid (R): 4+, Carotid (L) : 4+, Dorsalis-Pedis (R): 4+, Doralis-Pedis (L): 4+ Gastrointestinal/Abdominal: positive: Normal Bowel Sounds, Flat, Soft. negative : Tender, Organomegaly Lymphatic: negative: Adenopathy, Tenderness, Other Musculoskeletal: positive: Normal Inspection. negative: CVA Tenderness Extremity: positive: Normal Capillary Refill, Normal Inspection, Normal Range of Motion Integumentary: positive: Normal Color, Dry, Warm Neurologic: positive: vascular tech II-XII NML intact, Fully Oriented, Alert, Normal Mood/ Affect, Normal Response, Motor Strength 5/5 ED Treatment Course - ADDITIONAL ORDERS Additional order review: 10/20/19 08:59 Patient appears to have muscle strain Advised to take Medrol dose pack and will prescibe Flexeril Pt is in agreement with plan 10/20/19 09:08 CT reviewed with patient from last visit. Discharge - Discharge Information Problems reviewed: Yes Clinical Impression/Diagnosis: Cervical strain Qualifiers: Encounter type: initial encounter Qualified Code(s): S16.1XXA - Strain of muscle, fascia and tendon at neck level, initial encounter Condition: Good Disposition: HOME - Admission No - Follow up/Referral - Patient Discharge Instructions Patient Printed Discharge Instructions: DI for Cervical Muscle Strain Additional Instructions: Motrin, rest Medrol dose pack Flexeril 5 mg 3xx/day as needed If worsen return to ER - Post Discharge Activity
== END 2019-10-20 09:14 | disposition home or self-care (01) ==
LOC: FER 08:35
DX: S16.1XXA Strain of muscle, fascia and tendon at neck level, initial encounter (principal); X58.XXXA Exposure to other specified factors, initial encounter; Y93.9 Activity, unspecified; Y92.9 Unspecified place or not applicable
CPT/HCPCS: 99281-25

== ENCOUNTER 2020-06-04 14:25 | Emergency (ER) | payer OTHER ==
[2020-06-04 14:34] VITALS: BP 141/90; PULSE 79; TEMP 98.1; BMI 21.7
[2020-06-04] MEDS ORDERED: ACETAMINOPHEN 325 MG TABLET (FP) PO ONE (14:46)
[2020-06-04] MEDS ORDERED: ACETAMINOPHEN 500 MG TABLET (FP) ONE (14:50)
--- NOTE | 2020-06-04 14:53 | PDOC ---
Attending Attestation - Resident Resident Name: JuanitakyleeTerry - ED Attending Attestation I have performed the following: I have examined & evaluated the patient, The case was reviewed & discussed with the resident, I agree w/resident's findings & plan, Exceptions are as noted - HPI HPI: 06/04/20 18:58 54 years old presents to the ED with your complaint. Patient states she has a feeling of a bump on the antihelix of her ear. No trauma no redness no swelling no difficulty hearing no fever no chills no headache no neck stiffness symptoms that is mild slightly uncomfortable - Physicial Exam PE: 06/04/20 18:58 Vitals: Triage Vital signs reviewed General Appearance: No acute distress, well nourished well developed, Head: Atraumatic, Eyes: Pupils equal reactive round, extraocular movement intact Ears: TM's normal bilaterally; no tenderness palpation with movement of the ear Extremities: Full range of motion to all extremities, no cyanosis, clubbing, or edema Skin: Warm and dry, no rashes or lesions, no rash, no petechiae Psych: Normal mood, normal affect - Medical Decision Making 06/04/20 18:59 Well-appearing no apparent distress normal ear examination no indication for antibiotics at this time patient instructed to follow-up with her ENT Findings, need for follow-up and strict return instructions discussed with patient. Discharge - Discharge Information Problems reviewed: Yes Clinical Impression/Diagnosis: Ear pain, left Condition: Improved Disposition: HOME - Follow up/Referral Referrals: Kev Vásquez MD [Staff Physician] - - Patient Discharge Instructions Patient Printed Discharge Instructions: DI for Ear Pain-Adult Additional Instructions: You came into the ER with left ear pain. We looked inside your ear and found no evidence of infection. Please make sure to follow up with your ear doctor. You must return to the Emergency Department with any new complaints, if your symptoms persist and do not improve or if you develop any other new or worsening concerns. You can take over the counter Tylenol or Advil as needed for pain. Take as directed on the package insert. Do not exceed the recommended dosage. As discussed, please call to follow up with your Primary Care physician in 1-2 days to discuss what happened to you in the emergency room, and make sure you are being looked after and taken care of. Your emergency room visit is not complete without this follow up appointment. Please read the attached handouts for further information about your ER visit and what you should do moving forward. Thank you for coming to the [facility]. We hope you feel better soon! Print Language: CROATIAN - Post Discharge Activity
--- NOTE | 2020-06-04 14:56 | PDOC ---
History of Present Illness - General Chief Complaint: Ear Problem Stated Complaint: LEFT EARACHE Time Seen by Provider: 06/04/20 14:35 History Source: Patient Exam Limitations: No Limitations - History of Present Illness Initial Comments: Colette is a 54 yo F w a hx of migraines and chronic lower back pain who presents to the [facility] ER with 1 day of left sided outer ear discomfort stating she thinks she has something abnormal in her ears. She states she feels a throbbing pain which is uncomfortable. The pain is not worse when she pulls or tugs on her ear. Symptoms are moderate and persistent. The pain does not radiate anywhere outside her ear. rated 3/10 in intensity. Patient has not taken any medications to make the pain feel better. Denies fevers, chills, external earpain, mouth pain, recent procedures, difficulty hearing PCP: Dr. 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 Past History - Medical History Allergies/Adverse Reactions: Allergies Allergy/AdvReac Type Severity Reaction Status Date / Time No Known Allergies Allergy Verified 06/04/20 14:26 Home Medications: Ambulatory Orders Rizatriptan Benzoate [Rizatriptan] 10 mg PO PRN 10/20/19 COPD: No Psychiatric Problems: Yes (ANXIETY) Other medical history: MIGRAINE - Reproductive History Is Patient Now?: No - Immunization History Immunization Up to Date: Yes - Psycho-Social/Smoking History Smoking Status: No Smoking History: Never smoked Have you smoked in the past 12 months: No Number of Cigarettes Smoked Daily: 0 Information on smoking cessation initiated: No - Substance Abuse Hx (Audit-C & DAST Scrn) How often the patient has a drink containing alcohol: Never Score: In Men: 4 or > Positive; In Women: 3 or > Positive: 0 Screen Result (Pos requires Nsg. Audit-10AR): Negative In the last yr the pt used illegal drug/Rx for NonMed reason: No Score: Yes response is considered Positive: 0 Screen Result (Positive result requires Nsg. DAST-10): Negative Review of Systems - Review of Systems Able to Perform ROS?: Yes Comments:: CONSTITUTIONAL: Absent: fever, no chills, no fatigue EYES: Absent: visual changes ENT: Present: Ear pain Absent: no sore throat CARDIOVASCULAR: Absent: chest pain, no palpitations RESPIRATORY: Absent: cough, no SOB GI: Absent: abdominal pain, no nausea, no vomiting, no constipation, no diarrhea GENITOURINARY: Absent: dysuria, no frequency, no hematuria MUSKULOSKELETAL: Absent: back pain, no arthralgia, no myalgia SKIN: Absent: rash NEURO: Absent: headache *Physical Exam - Vital Signs Last Vital Signs Temp Pulse Resp BP Pulse Ox 98.1 F 79 16 141/90 100 06/04/20 14:26 06/04/20 14:26 06/04/20 14:26 06/04/20 14:26 06/04/20 14:26 - Physical Exam LEFT EAR: The canal is normal without erythema. Normal appearing tympani membrane without erythema. No mastoid tenderness. no tragus tenderness. no external erythema. no appreciable lumps on the ear. Hearing equal in both ears. GENERAL: Well-appearing, well-nourished. No apparent distress. HEENT: Normocephalic, atraumatic. PERRL, EOM intact. Normal appearing dental hygiene without cavities. CARDIOVASCULAR: Normal S1, S2. Regular rate and rhythm. PULMONARY: No evidence of respiratory distress. Lungs clear to auscultation bilaterally. No wheezing, rales or rhonchi. ABDOMEN: Soft, non-distended, non-tender. EXTREMITIES: Normal ROM in all four extremities. No gross deformities. SKIN: Warm, dry. No rash NEUROLOGICAL: Alert, awake, appropriate. Cranial nerves 2-12 intact. No deficits to light touch in face, upper extremities and lower extremities. No motor deficits in the in face, upper extremities and lower extremities. Normal speech. Gait is normal without ataxia. PSYCHIATRIC: Cooperative. Good eye contact. Appropriate mood and affect. ED Treatment Course - Medications Given in the ED: ED Medications Discontinued Medications Generic Name Dose Route Start Last Admin Trade Name Freq PRN Reason Stop Dose Admin Acetaminophen 1,000 mg 06/04/20 14:46 06/04/20 14:52 Tylenol - PO 06/04/20 14:47 Not Given ONCE ONE Medical Decision Making - Medical Decision Making Colette is a 54 yo F w a hx of migraines and chronic lower back pain who presents to the [facility] ER with 1 day of left sided outer ear discomfort stating she thinks she has something abnormal in her ears. She states she feels a throbbing pain which is uncomfortable. The pain is not worse when she pulls or tugs on her ear. Symptoms are moderate and persistent. The pain does not radiate anywhere outside her ear. rated 3/10 in intensity. Patient has not taken any medications to make the pain feel better. Denies fevers, chills, external earpain, mouth pain, recent procedures, difficulty hearing Vital Signs Temp Pulse Resp BP Pulse Ox 98.1 F 79 16 141/90 100 06/04/20 14:26 06/04/20 14:26 06/04/20 14:26 06/04/20 14:06/04/20 14:26 DDx IBNLT: otitis interna vs otitis media vs otitis externa, foreign body in ear, auricular cellulitis, mastoiditis MDM: Patient is extremely well appearing, without any signs of infection. No mastoid or tragus tenderness. No external erythema suggestive of infection or underlying cellulitis. I do not appreciate any foreing bodies or any abnormalities inside the patients ear. The patient appears clinically sober, has no evidence of clinical intoxication, is A&O x4, has no sustained nystagmus, and appears to be capable and have capacity to make reasonable decisions. The patient states they are currently in the emergency department, knows who the president is, states the correct time, correct day, and correct month. The patient is ambulatory in ER and has walked around the nursing station multiple times with a straight and steady gait, and is not ataxic. Tolerating PO well, ate a sandwich and drank juice. Denies having any SI or HI. Patient states will not be driving home. Plan: analgesia, ENT referral/FU I discussed the physical exam findings, ancillary test results and final diagno ses with the patient. I answered all of the patient's questions. The patient was satisfied with the care received and felt comfortable with the discharge plan and treatment plan. The patient will call their primary care physician within 24 hours to arrange follow-up and will return to the Emergency Department with any new, persistent or worsening symptoms. Please note, this clinical encounter is taking place during a federal and state health care emergency attributable to the novel Miranda Virus pandemic. The [place] of the Department of Health and Human Services has declared, pursuant to the Public Health Service Act 319F-3 (42 U.S.C. 247d-6d), that a covered persons activities related to medical countermeasures against COVID-19 will be immune from liability under Federal and State law. Discharge - Discharge Information Problems reviewed: Yes Clinical Impression/Diagnosis: Ear pain, left Condition: Improved Disposition: HOME - Admission No - Follow up/Referral Referrals: Kev Vásquez MD [Staff Physician] - - Patient Discharge Instructions Patient Printed Discharge Instructions: DI for Ear Pain-Adult Additional Instructions: You came into the ER with left ear pain. We looked inside your ear and found no evidence of infection. Please make sure to follow up with your ear doctor. You must return to the Emergency Department with any new complaints, if your symptoms persist and do not improve or if you develop any other new or worsening concerns. You can take over the counter Tylenol or Advil as needed for pain. Take as directed on the package insert. Do not exceed the recommended dosage. As discussed, please call to follow up with your Primary Care physician in 1-2 days to discuss what happened to you in the emergency room, and make sure you are being looked after and taken care of. Your emergency room visit is not complete without this follow up appointment. Please read the attached handouts for further information about your ER visit and what you should do moving forward. Thank you for coming to the [facility] ER. We hope you feel better soon! Print Language: BRUNEIAN - Post Discharge Activity
== END 2020-06-04 15:01 | disposition home or self-care (01) ==
LOC: FER 14:25
DX: H92.12 Otorrhea, left ear (principal)
CPT/HCPCS: 99283-25

== ENCOUNTER 2020-09-24 07:51 | Emergency (ER) | payer OTHER ==
[2020-09-24 08:09] VITALS: BP 142/90; PULSE 80; TEMP 99; BMI 21.7
[2020-09-24] MEDS ORDERED: DICYCLOMINE HCL 10 MG CAPSULE PO ONE (08:16)
[2020-09-24] MEDS ORDERED: ACETAMINOPHEN 325 MG TABLET (FP) PO ONE (08:17)
[2020-09-24] MEDS ORDERED: DICYCLOMINE HCL 10 MG CAPSULE ONE (08:41)
[2020-09-24] MEDS ORDERED: ACETAMINOPHEN 325 MG TABLET (FP) ONE (08:41)
[2020-09-24 09:26] LABS: EPITHELIAL CELLS FEW /hpf
== END 2020-09-24 10:06 | disposition home or self-care (01) ==
LOC: FER 07:51
DX: K58.9 Irritable bowel syndrome, unspecified (principal)
CPT/HCPCS: 81003; 81015; 99284-25

== ENCOUNTER 2020-11-17 10:03 | Emergency (ER) | payer OTHER ==
[2020-11-17 10:06] VITALS: BMI 21.7
[2020-11-17 10:32] VITALS: BP 144/89; PULSE 77; TEMP 99.2
== END 2020-11-17 10:36 ==
LOC: FER 10:03
DX: M25.562 Pain in left knee (principal)
CPT/HCPCS: 99282-25

== ENCOUNTER 2021-06-07 09:01 | Emergency (ER) | payer OTHER ==
[2021-06-07 09:20] VITALS: BP 152/96; PULSE 80; TEMP 98.2; BMI 21.5
[2021-06-07] MEDS ORDERED: IBUPROFEN 400 MG TABLET (FP) PO ONE (09:30)
== END 2021-06-07 10:18 | disposition home or self-care (01) ==
LOC: FER 09:01
DX: M25.561 Pain in right knee (principal); W10.8XXA Fall (on) (from) other stairs and steps, initial encounter; Y93.01 Activity, walking, marching and hiking
CPT/HCPCS: 73560-TC-RT-FY; 99283-25

== ENCOUNTER 2021-07-24 08:19 | Emergency (ER) | payer OTHER ==
[2021-07-24 08:31] VITALS: BP 152/92; PULSE 88; TEMP 98.3; BMI 21.7
[2021-07-24] MEDS ORDERED: KETOROLAC TROMETHAMINE 30 MG/1 ML VIAL IVPUSH ONE (08:49)
[2021-07-24] MEDS ORDERED: LIDOCAINE 5% TOPICAL PATCH TP ONE (08:49)
[2021-07-24] MEDS ORDERED: LIDOCAINE 5% TOPICAL PATCH ONE (09:17)
[2021-07-24] MEDS ORDERED: KETOROLAC TROMETHAMINE 30 MG/1 ML VIAL ONE (09:17)
[2021-07-24 09:41] LABS: ALBUMIN 4.2 g/dl (3.4-5.0); ALK PHOS 70 U/L (45-117); ANION GAP 12 MMOL/L (8-16); BILIRUBIN,TOTAL 0.8 mg/dl (0.2-1); CALCIUM 9.7 mg/dl (8.5-10); CHLORIDE 101 mmol/L (98-107); CO2 27 mmol/L (21-32); CREATININE 0.6 mg/dl (0.55-1.3); GLUCOSE,RANDOM 93 mg/dl (74-106); INR 0.99 (0.82-1.09); PROTHROMBIN TIME (PATIENT) 11.1 SEC (10.2-13.0); SGOT/AST 16 U/L (15-37); SGPT/ALT 16 U/L (13-61); SODIUM 140 mmol/L (136-145); TOT PROT 6.7 g/dl (6.4-8.2)
[2021-07-24 10:51] LABS: BASO % 0.5 % (0-2.0); EOS % 0.6 % (0-4.5); HEMATOCRIT 42.9 % (32.4-45.2); HEMOGLOBIN 14.1 GM/dL (10.7-15.3); MCH 28.8 pg (25.7-33.7); MCHC 32.8 g/dl (32.0-36.0); MEAN CELL VOLUME 87.6 fl (80-96); MEAN PLT VOLUME 7.3 fl (7.5-11.1); MONO % 7.8 % (3.8-10.2); NEUT % 68.1 % (42.8-82.8); PLATELET COUNT 251 10^3/uL (134-434); RBC 4.89 M/mm3 (3.60-5.2); RDW 14.6 % (11.6-15.6); WHITE BLOOD COUNT 7.3 K/mm3 (4.0-10.0)
[2021-07-24] MEDS ORDERED: LIDOCAINE PATCH REMOVAL MC SCH (22:00)
== END 2021-07-24 11:12 | disposition home or self-care (01) ==
LOC: FER 08:19
PROC: 3E0233Z Introduction of Anti-inflammatory into Muscle, Percutaneous Approach (ICD-10-PCS; principal; 2021-07-24)
DX: R07.89 Other chest pain (principal)
CPT/HCPCS: 36415; 71046-TC-FY; 80053; 82550; 84484; 85025; 85610; 85730; 93005; 99284-25

== ENCOUNTER 2022-04-25 09:51 | Emergency (ER) | payer OTHER ==
[2022-04-25 10:05] VITALS: BP 144/90; PULSE 80; TEMP 98.5; BMI 21.7
== END 2022-04-25 11:50 | disposition home or self-care (01) ==
LOC: SUPCPDRO 09:51 → FER 09:51
DX: M79.652 Pain in left thigh (principal)
CPT/HCPCS: 93971-TC; 99283-25

== ENCOUNTER 2022-10-26 18:35 | Emergency (ER) | payer OTHER ==
[2022-10-26 18:52] VITALS: BP 147/100; PULSE 100; RESP 16; TEMP 99.8; BMI 22.1
== END 2022-10-26 19:52 | disposition home or self-care (01) ==
LOC: FER 18:35
DX: U07.1 COVID-19 (principal); R05.1 Acute cough; J02.9 Acute pharyngitis, unspecified; H92.01 Otalgia, right ear
CPT/HCPCS: 0241U-QW; 99283-25

== ENCOUNTER 2022-11-05 09:14 | Emergency (ER) | payer OTHER ==
[2022-11-05 09:34] VITALS: BP 162/102; PULSE 85; RESP 20; TEMP 99.3; BMI 20.7
[2022-11-05] MEDS: KETOROLAC TROMETHAMINE 30 MG/1 ML VIAL IM ONE ×2 (10:05→10:11)
[2022-11-05] MEDS ORDERED: KETOROLAC TROMETHAMINE 30 MG/1 ML VIAL ONE (10:07)
== END 2022-11-05 10:21 | disposition home or self-care (01) ==
LOC: FER 09:14
DX: R19.7 Diarrhea, unspecified (principal)
CPT/HCPCS: 0241U-QW; 93971-TC; 99284-25

== ENCOUNTER 2023-03-01 09:16 | Emergency (ER) | payer OTHER ==
[2023-03-01 09:33] VITALS: BP 142/94; PULSE 83; RESP 16; TEMP 98.4; BMI 20.7
== END 2023-03-01 11:03 | disposition left against medical advice (07) ==
LOC: FER 09:16
DX: M79.661 Pain in right lower leg (principal); M79.662 Pain in left lower leg
CPT/HCPCS: 85379; 93970-TC; 99284-25

== ENCOUNTER 2023-11-25 15:57 | Emergency (ER) | payer OTHER ==
[2023-11-25 16:28] VITALS: BP 134/89; PULSE 78; RESP 18; TEMP 97.8; BMI 21.7
== END 2023-11-25 17:15 | disposition home or self-care (01) ==
LOC: FER 15:57
DX: S83.92XA Sprain of unspecified site of left knee, initial encounter (principal); X50.9XXA Other and unspecified overexertion or strenuous movements or postures, initial encounter; Y92.9 Unspecified place or not applicable
CPT/HCPCS: 73130-TC-RT-FY; 73562-TC-LT-FY; 73562-TC-RT-FY; 99284-25

== ENCOUNTER 2023-12-08 09:34 | Emergency (ER) | payer OTHER ==
[2023-12-08 09:42] VITALS: BP 134/88; PULSE 80; RESP 20; TEMP 98.4; BMI 21.7
== END 2023-12-08 10:30 | disposition home or self-care (01) ==
LOC: FER 09:34
DX: M25.562 Pain in left knee (principal); W10.9XXA Fall (on) (from) unspecified stairs and steps, initial encounter
CPT/HCPCS: 99282-25